=== PATIENT | female | born 1945 | race Caucasian/White ===

== ENCOUNTER 2020-10-13 08:29 | Emergency (ER) | payer MEDICARE, SELFPAY ==
[2020-10-13 09:01] VITALS: BP 180/81; PULSE 59; RESP 20; TEMP 36.5; O2SAT 98; BMI 28.3
--- NOTE | 2020-10-13 09:10 | DI.RAD.S_ITS ---
PROCEDURE: XR RIBS RT MIN 3V W CXR 1V INDICATIONS: R lateral rib pain TECHNIQUE: To views of the right ribs were acquired, along with a single view chest. COMPARISON: None. FINDINGS: Surgical changes and devices: None. Bones and chest wall: Evaluation of ribs are slightly degraded due to patient motion. No obvious displaced rib fractures or dislocations. No suspicious bony lesions. Overlying soft tissues appear unremarkable. Lungs and pleura: No pleural effusions or pneumothorax. Lungs appear clear. Mediastinum: Mediastinal contours appear normal. Heart size is enlarged. IMPRESSION: No obvious displaced right rib fracture. No acute cardiopulmonary pathology. Dictated by: Yusuf Ann M.D. on 10/13/2020 at 9:57 Approved by: Yusuf Ann M.D. on 10/13/2020 at 9:59
--- NOTE | 2020-10-13 09:10 | DI.RAD.S_ITS ---
PROCEDURE: XR CERVICAL SPINE 2V OR 3V INDICATIONS: C7 pain not because of trauma TECHNIQUE: 3 view(s) of the cervical spine were acquired. COMPARISON: None. FINDINGS: Bones: No fractures or dislocations to the C7-T1 level. There is minimal anterolisthesis of C3 on C4 and grade 1 anterolisthesis of C4 on C5 and C5 on C6. Degenerative endplate changes and bilateral os and hypertrophic changes are noted throughout cervical spine more prominent at C4-5 through C6-7 levels. The lateral masses of C1 appear intact on the odontoid view. No suspicious bony lesions. Soft tissues: No prevertebral soft tissue swelling. IMPRESSION: Degenerative disc disease throughout cervical spine with likely degenerative spondylolisthesis as described above. No acute fracture or dislocation. Dictated by: Yusuf Ann M.D. on 10/13/2020 at 9:55 Approved by: Yusuf Ann M.D. on 10/13/2020 at 9:57
--- NOTE | 2020-10-13 09:17 | ED.CHESTPAIN ---
HPI - Chest Pain General Chief Complaint: Chest Pain Stated Complaint: Cardio issues- fell yesterday Time Seen by Provider: 10/13/20 08:31 Source: patient Mode of arrival: Ambulatory Limitations: no limitations History of Present Illness HPI narrative: Patient is a 75-year-old female. Not on anticoagulation who is here after she tripped on the sidewalk yesterday. She states that she fell forward. Sustained a abrasion to her right knee in her right elbow and she is also having right-sided chest discomfort. Worse with palpation and deep breathing. She did not hit her head. She also has neck discomfort but this is not because of the fall. She is supposed to see physical therapy for this. Has not tried anything for her symptoms. She did have to have individuals help her up was able to ambulate afterwards. She is here because of her neck discomfort and also her right-sided chest discomfort. Review of Systems Constitutional Comments: No fevers ENT Ears, Nose, Mouth, and Throat: Reports neck pain Cardiovascular Comments: Right-sided chest discomfort Respiratory Comments: Shortness of breath with inspiration Gastrointestinal Comments: No abdominal pain Musculoskeletal Musculoskeletal: Denies back pain and Reports neck pain Integumentary/Breasts Comments: Abrasion to her right knee and right elbow Neurologic Neurologic: Reports system reviewed and no additional complaints, except as documented Psychiatric Psychiatric: Reports system reviewed and no additional complaints, except as documented Hematologic/Lymphatic On Anticoagulants: No Allergic/Immunologic Allergic/Immunologic: Reports system reviewed and no additional complaints, except as documented Patient History Social History Smoking Status: Never smoker Smoking Status: Never smoker alcohol intake frequency: 0-2 drinks per day Substance Use Type: does not use Exam Initial Vital Signs Initial Vital Signs: Vital Signs Temperature 97.7 F 10/13/20 09:01 Pulse Rate 59 L 10/13/20 09:01 Respiratory Rate 20 10/13/20 09:01 Blood Pressure 180/81 H 10/13/20 09:01 Pulse Oximetry 98 10/13/20 09:01 Const General: cooperative and comfortable HENMT Head: normal to inspection and normocephalic Eyes General: appearance normal, both eyes and all related structures Chest Other: Tenderness to palpation right lateral chest wall without crepitus. Resp Effort & Inspection: normal respiratory effort Cardio Rate: regular rate Rhythm: regular rhythm GI Inspection: normal to inspection Back/Spine/Pelvis Cervical Spine: cervical ROM normal and cervical spinal tenderness (C7) Thoracic/Lumbar Spine: No thoracic spinal tenderness Skin Other: Superficial abrasion to right anterior knee and over like her not on the right elbow Neuro General: patient alert, patient awake and moves all extremities Extrem General: normal to inspection and capillary refill normal Psych Appearance: grossly normal and well kempt Course Orders Ordered: ED Orders 10/13/20 08:45 EKG-12 Lead Stat 10/13/20 09:10 XR cervical spine 2V or 3V Stat XR ribs RT min 3V w CXR1V Stat Vital Signs Vital signs: Vital Signs - 8 hr 10/13/20 09:01 10/13/20 09:37 10/13/20 09:38 Temperature 97.7 F Pulse Rate 59 L 66 59 L Respiratory Rate 20 38 H 19 Blood Pressure 180/81 H 204/84 H Pulse Oximetry 98 94 88 L 10/13/20 09:49 10/13/20 10:00 10/13/20 10:14 Temperature Pulse Rate 56 L 59 L 57 L Respiratory Rate 16 30 H 23 Blood Pressure 173/74 H 177/71 H 177/71 H Pulse Oximetry 100 98 95 MDM - Chest Pain Lab Data Labs: Urine Dip Bedside Urine Glucose Negative Bedside Urine Bilirubin - Negative Bedside Urine Ketone - Negative Urine Specific [place] 1.015 Bedside Urine Occult Blood - Negative Bedside Urine pH 6.5 Bedside Urine Protein - Negative Bedside Urine Urobilinogen - Negative Bedside Urine Nitrite - Negative Bedside Urine Leukocytes - Negative Esterase Imaging Data XR ribs: Radiologist's Impression: [address] [id number] ReportSigned Patient: Tanja Humphries LMR#: [id number]: 5Acct:[id number]/Sex: 75 / FDate of Service: 10/13/20Loc: EDAccession Number: [id number] Procedure: XR ribs RT min 3V w CXR1V Ordering Provider: Isak Quiñonez D.O. PROCEDURE: XR RIBS RT MIN 3V W CXR 1V INDICATIONS: R lateral rib pain TECHNIQUE: To views of the right ribs were acquired, along with a single view chest. COMPARISON: None. FINDINGS: Surgical changes and devices: None. Bones and chest wall: Evaluation of ribs are slightly degraded due to patient motion. No obvious displaced rib fractures or dislocations. No suspicious bony lesions. Overlying soft tissues appear unremarkable. Lungs and pleura: No pleural effusions or pneumothorax. Lungs appear clear. Mediastinum: Mediastinal contours appear normal. Heart size is enlarged. IMPRESSION: No obvious displaced right rib fracture. No acute cardiopulmonary pathology. Dictated by: Yusuf Ann M.D. on 10/13/2020 at 9:57 Approved by: Yusuf Ann M.D. on 10/13/2020 at 9:59 XR C spine: Radiologist's Impression: [address] [id number] ReportSigned Patient: Tanja Humphries LMR#: [id number]: [id number]:[id number]/Sex: 75 / FDate of Service: 10/13/20Loc: EDAccession Number: [id number] Procedure: XR cervical spine 2V or 3V Ordering Provider: Isak Quiñonez D.O. PROCEDURE: XR CERVICAL SPINE 2V OR 3V INDICATIONS: C7 pain not because of trauma TECHNIQUE: 3 view(s) of the cervical spine were acquired. COMPARISON: None. FINDINGS: Bones: No fractures or dislocations to the C7-T1 level. There is minimal anterolisthesis of C3 on C4 and grade 1 anterolisthesis of C4 on C5 and C5 on C6. Degenerative endplate changes and bilateral os and hypertrophic changes are noted throughout cervical spine more prominent at C4-5 through C6-7 levels. The lateral masses of C1 appear intact on the odontoid view. No suspicious bony lesions. Soft tissues: No prevertebral soft tissue swelling. IMPRESSION: Degenerative disc disease throughout cervical spine with likely degenerative spondylolisthesis as described above. No acute fracture or dislocation. Dictated by: Yusuf Ann M.D. on 10/13/2020 at 9:55 Approved by: Yusuf Ann M.D. on 10/13/2020 at 9:57 ECG Data Attestation: I personally reviewed and interpreted this ECG as follows: Interpretation: Sinus bradycardia Ventricular rate of 55 Normal axis Normal QRS Normal QTC No ST T wave changes MDM Narrative Medical decision making narrative: No respiratory distress. X-ray showed no signs of an acute fracture. This was a mechanical fall. We can hold on further workup for now. She has an appointment with her primary doctor on Tuesday this week. She was given return precautions and follow-up instructions. She expressed understanding and agreement. Discharge Plan Departure Patient Disposition: Home Clinical Impression: Contusion of rib on right side Instructions: DI for Rib Contusion Activity Restrictions/Additional Instructions: Keep your appointment with your primary doctor that is coming up at the end of this week. You can take Tylenol for any discomfort. Return to the emergency department for any new or worsening symptoms Referrals: Dany Hernandez MD [Primary Care Provider] -
[2020-10-13 09:37] VITALS: PULSE 66; RESP 38; O2SAT 94
[2020-10-13 09:38] VITALS: BP 204/84; PULSE 59; RESP 19; O2SAT 88
[2020-10-13 09:49] VITALS: BP 173/74; PULSE 56; RESP 16; O2SAT 100
[2020-10-13 10:00] VITALS: BP 177/71; PULSE 59; RESP 30; O2SAT 98
[2020-10-13 10:14] VITALS: BP 177/71; PULSE 57; RESP 23; O2SAT 95
== END 2020-10-13 10:24 | disposition home or self-care (01) ==
PROVIDERS: Emergency Provider Emergency Medicine; Family Provider Internal Medicine; PCP Internal Medicine
DX: S20.211A Contusion of right front wall of thorax, initial encounter (principal); S80.211A Abrasion, right knee, initial encounter; S50.311A Abrasion of right elbow, initial encounter; W19.XXXA Unspecified fall, initial encounter
CPT/HCPCS: 71101; 72040; 81003; 93005; 93010; 99282; 99284

== ENCOUNTER → 2020-10-20 10:52 | Outpatient (CLI) | payer MEDICARE, SELFPAY ==
[2020-10-20 12:59] LABS: COVID19 -Nasal RAPID Negative (Negative)
== END ==
PROVIDERS: Family Provider Internal Medicine; PCP Internal Medicine; Visit Provider Nurse Practitioner
DX: Z20.822 Contact with and (suspected) exposure to COVID-19 (principal); J02.9 Acute pharyngitis, unspecified; R51.9 Headache, unspecified
CPT/HCPCS: 87635